=== PATIENT | male | born 1995 | race Caucasian/White ===

== ENCOUNTER 2022-09-01 12:54 | Emergency (ER) | payer MEDICAID, OTHER, SELFPAY ==
--- NOTE | 2022-09-01 13:02 | ED_ITS ---
HPI - Extremity Problem General Chief complaint: Wound/Laceration <MICK Crawford - Last Filed: 09/01/22 13:05> Stated complaint: L finger laceration <MICK Crawford - Last Filed: 09/01/22 13:05> Time Seen by Provider: 09/01/22 14:41 <MICK Crawford - Last Filed: 09/01/22 13:05> Source: patient and print operator <Anneliese Hodgson NP - Last Filed: 09/01/22 16:53> Mode of arrival: ambulatory <Anneliese Hodgson NP - Last Filed: 09/01/22 16:53> Limitations: language barrier <Anneliese Hodgson NP - Last Filed: 09/01/22 16:53> History of Present Illness HPI Narrative: 26 yo male right hand dominant here with lac to left index finger from a knife. Tetanus unknown. No weakness, numbness, tingling of the extremity. <RIANA Coello Last Filed: 09/01/22 16:53> Related Data Allergies/Adverse reactions: Allergies Allergy/AdvReac Type Severity Reaction Status Date / Time No Known Allergies Allergy Verified 09/01/22 13:03 <MICK Crawford - Last Filed: 09/01/22 13:05> Review of Systems Review of Systems: Yes all other systems are reviewed and are negative <Anneliese Hodgson NP - Last Filed: 09/01/22 16:53> Constitutional: Constitutional: Reports no additional constitutional complaints, Denies body ache(s), Denies chills, Denies fever(s), Denies headache(s) and Denies weakness <Anneliese Hodgson NP - Last Filed: 09/01/22 16:53> Eyes: Eyes: Reports no additional eye complaints and Denies change in vision <Anneliese Hodgson NP - Last Filed: 09/01/22 16:53> ENT: Reports system reviewed and no additional complaints, except as documented, Denies dizziness, Denies headache(s), Denies nasal congestion, Denies nasal discharge and Denies neck pain <Anneliese Hodgson NP - Last Filed: 09/01/22 16:53> Cardiovascular: Cardiovascular: Reports no additional cardiovascular complaints, Denies chest pain, Denies leg edema and Denies dyspnea <Anneliese Hodgson NP - Last Filed: 09/01/22 16:53> Respiratory: Respiratory: Reports no additional respiratory complaints, Denies cough and Denies dyspnea <Anneliese Hodgson NP - Last Filed: 09/01/22 16:53> Gastrointestinal: Gastrointestinal: Reports no additional gastrointestinal complaints, Denies abdominal pain, Denies diarrhea, Denies nausea and Denies vomiting <Anneliese Hodgson NP - Last Filed: 09/01/22 16:53> Genitourinary: Genitourinary: Denies urinary incontinence <Anneliese Hodgson NP - Last Filed: 09/01/22 16:53> Musculoskeletal: Musculoskeletal: Reports no additional musculoskeletal complaints, Denies back pain, Denies arthralgias, Denies joint swelling, Denies neck pain, Denies numbness and Denies tingling <Anneliese Hodgson NP - Last Filed: 09/01/22 16:53> Integumentary/Breasts: Skin/Breast: Reports system reviewed and no additional complaints, except as docu, Denies rash and Reports wounds <Anneliese Hodgson NP - Last Filed: 09/01/22 16:53> Neurologic: Reports system reviewed and no additional complaints, except as documented, Denies Abnormal speech present, Denies dizziness, Denies headache(s), Denies numbness, Denies tingling and Denies weakness <Anneliese Hodgson NP - Last Filed: 09/01/22 16:53> [facility] Past Medical History Attestation statement: The following information was validated with the patient. <Anneliese Hodgson NP - Last Filed: 09/01/22 16:53> Source: old records reviewed and nursing notes reviewed <Anneliese Hodgson NP - Last Filed: 09/01/22 16:53> Social History Social History: Social History Advance Directives: No Advance Directives Information Provided: Yes <MICK Crawford - Last Filed: 09/01/22 13:05> Physical Exam Vital Signs: Vital Signs: Last Vital Signs Temp 97.8 F 09/01/22 16:37 Pulse 60 09/01/22 16:37 Resp 16 09/01/22 16:37 BP 121/78 09/01/22 16:37 Pulse Ox 98 09/01/22 16:37 O2 Del Method 09/01/22 16:37 BMI result Body Mass Index 28.3 <MICK Crawford - Last Filed: 09/01/22 13:05> Vital Signs: Last Vital Signs Temp 97.8 F 09/01/22 16:37 Pulse 60 09/01/22 16:37 Resp 16 09/01/22 16:37 BP 121/78 09/01/22 16:37 Pulse Ox 98 09/01/22 16:37 O2 Del Method 09/01/22 16:37 BMI result Body Mass Index 28.3 <Anneliese Hodgson NP - Last Filed: 09/01/22 16:53> Const: General: cooperative, healthy appearing, comfortable and no acute distress <Anneliese Hodgson NP - Last Filed: 09/01/22 16:53> Orientation/consciousness: patient oriented x3 <Anneliese Hodgson NP - Last Filed: 09/01/22 16:53> Limitations: no limitations <Anneliese Hodgson NP - Last Filed: 09/01/22 16:53> HEENT: Head: Yes normal to inspection <Anneliese Hodgson NP - Last Filed: 09/01/22 16:53> Ears: hearing grossly normal bilaterally <Anneliese Hodgson NP - Last Filed: 09/01/22 16:53> General nose exam: Normal external nose present <Anneliese Hodgson NP - Last Filed: 09/01/22 16:53> Face and sinus: Yes normal facial exam <Anneliese Hodgson NP - Last Filed: 09/01/22 16:53> Mouth: Normal oral and palatal mucosa present <Anneliese Hodgson NP - Last Filed: 09/01/22 16:53> Throat: Yes posterior oropharynx normal <Anneliese Hodgson [employer]ERCIAL LINES ASSISTANT - Last Filed: 09/01/22 16:53> Eyes: General: appearance normal, both eyes and all related structures <Anneliese Hodgson COMMERCIAL LINES ASSISTANT - Last Filed: 09/01/22 16:53> Pupils: Equal, round and reactive pupils present <Anneliese Hodgson COMMERCIAL LINES ASSISTANT - Last Filed: 09/01/22 16:53> Neck: Neck: Yes normal visual inspection <Anneliese Hodgson COMMERCIAL LINES ASSISTANT - Last Filed: 09/01/22 16:53> Chest: Chest palpation & inspection: normal inspection of the chest <Anneliese Hodgson COMMERCIAL LINES ASSISTANT - Last Filed: 09/01/22 16:53> Resp: Effort & Inspection: normal respiratory effort <Anneliese Hodgson COMMERCIAL LINES ASSISTANT - Last Filed: 09/01/22 16:53> Auscultation: clear to auscultation bilaterally <Anneliese Hodgson COMMERCIAL LINES ASSISTANT - Last Filed: 09/01/22 16:53> Cardio: Rate: regular rate <Anneliese Hodgson COMMERCIAL LINES ASSISTANT - Last Filed: 09/01/22 16:53> Rhythm: regular rhythm <Anneliese Hodgson COMMERCIAL LINES ASSISTANT - Last Filed: 09/01/22 16:53> Peripheral pulses: Peripheral pulses 2+ throughout <Anneliese Hodgson COMMERCIAL LINES ASSISTANT - Last Filed: 09/01/22 16:53> GI: Inspection: Yes normal to inspection <Anneliese Hodgson COMMERCIAL LINES ASSISTANT - Last Filed: 09/01/22 16:53> Palpation (GI): Soft to palpation and nontender <Anneliese Hodgson COMMERCIAL LINES ASSISTANT - Last Filed: 09/01/22 16:53> Auscultation: normal bowel sounds <Anneliese Hodgson COMMERCIAL LINES ASSISTANT - Last Filed: 09/01/22 16:53> Back/Spine/Pelvis: Thoracic/Lumbar Spine: thoracic and lumbar spine normal to inspection <Anneliese Hodgson COMMERCIAL LINES ASSISTANT - Last Filed: 09/01/22 16:53> Skin: General skin exam: no rashes or lesions noted <Anneliese Hodgson COMMERCIAL LINES ASSISTANT - Last Filed: 09/01/22 16:53> Neuro: General: patient oriented x3, no focal motor deficits and normal sensation to monofilament <Anneliese Hodgson NP - Last Filed: 09/01/22 16:53> Cranial nerves: Yes Equal, round and reactive pupils present <Anneliese chase NP - Last Filed: 09/01/22 16:53> Cognition (Neuro): normal cognition <Anneliese Hodgson NP - Last Filed: 09/01/22 16:53> Speech: No Abnormal speech present <Anneliese Hodgson COMMERCIAL LINES ASSISTANT - Last Filed: 09/01/22 16:53> Gait exam (Neuro): Normal gait present <Anneliese Hodgson NP - Last Filed: 09/01/22 16:53> Motor exam (neuro): 5/5 motor strength present throughout <Anneliese Hodgson NP - Last Filed: 09/01/22 16:53> Extrem: Other: Over the left index finger on the dorsal aspect of the PIP there is 2cm laceration. FROM of the digit with no difficulty. Normal distal sensation <Anneliese Hodgson NP - Last Filed: 09/01/22 16:53> General: Yes normal to inspection <Anneliese Hodgson NP - Last Filed: 09/01/22 16:53> Course Course Course Narrative: This is an RME: Additional HPI, ROS, PE not included below will be deferred to primary provider. 26 year old male presents w/ lac to L. second digit , patient tells me he caught himself accidentally with a knife just prior to arrival. Not up-to-date on tetanus shot. Physical examination with a 2 cm linear laceration to the dorsal aspect of 2nd digit. 2+ radial pulses equal bilateral. Normal capillary refill. Laceration will require repair. Will order Boostrix from triage. <MICK Crawford - Last Filed: 09/01/22 13:05> Reevaluation(s) Reevaluation #1: Patient seen in conjunction with MICK Hansen who performed wound repair <Anneliese Hodgson NP - Last Filed: 09/01/22 16:53> Medications Administered Discontinued Medications Generic Name Dose Route Start Last Admin Trade Name Freq PRN Reason Stop Dose Admin Diphtheria/Tetanus/Acell Pertussis 0.5 ml 09/01/22 13:03 09/01/22 14:43 Diphth,Pertus(Acell),Tet Adult 0.5 Ml Syringe IM 09/01/22 13:04 0.5 ml .ONCE ONE Administration Lidocaine HCl 2 ml 09/01/22 15:36 09/01/22 15:41 Lidocaine Hcl 1 % Mpf 2 Ml Vial INFILTRATI 09/01/22 15:37 2 ml ONCE ONE Administration Lidocaine HCl 2 ml 09/01/22 15:36 09/01/22 15:41 Lidocaine Hcl 1 % Mpf 2 Ml Vial INFILTRATI 09/01/22 15:37 2 ml ONCE ONE Administration <MICK Crawford - Last Filed: 09/01/22 13:05> Medications Administered Discontinued Medications Generic Name Dose Route Start Last Admin Trade Name Freq PRN Reason Stop Dose Admin Diphtheria/Tetanus/Acell Pertussis 0.5 ml 09/01/22 13:03 09/01/22 14:43 Diphth,Pertus(Acell),Tet Adult 0.5 Ml Syringe IM 09/01/22 13:04 0.5 ml .ONCE ONE Administration Lidocaine HCl 2 ml 09/01/22 15:36 09/01/22 15:41 Lidocaine Hcl 1 % Mpf 2 Ml Vial INFILTRATI 09/01/22 15:37 2 ml ONCE ONE Administration Lidocaine HCl 2 ml 09/01/22 15:36 09/01/22 15:41 Lidocaine Hcl 1 % Mpf 2 Ml Vial INFILTRATI 09/01/22 15:37 2 ml ONCE ONE Administration <Anneliese Hodgson NP - Last Filed: 09/01/22 16:53> Medical Decision Making Medical Decision Making MDM Narrative: 26 yo male right hand dominant here with laceration to left index finger. Tetanus unknown See procedure note <Anneliese Hodgson NP - Last Filed: 09/01/22 16:53> Differential Diagnosis Differential Diagnoses: The differential diagnosis associated with the presentation includes <Anneliese Hodgson NP - Last Filed: 09/01/22 16:53> laceration <Anneliese Hodgson NP - Last Filed: 09/01/22 16:53> Procedures Laceration Laceration 1: Site: hand (index finger) <Anneliese Hodgson NP - Last Filed: 09/01/22 16:53> Side (If applicable): left <Anneliese Hodgson NP - Last Filed: 09/01/22 16:53> Size (cm): 2 <Anneliese Hodgson NP - Last Filed: 09/01/22 16:53> Description: linear <Anneliese Hodgson NP - Last Filed: 09/01/22 16:53> Depth: simple, single layer <Anneliese Hodgson NP - Last Filed: 09/01/22 16:53> Pre-repair: wound explored <Anneliese Hodgson NP - Last Filed: 09/01/22 16:53> Skin layer closed with: vicryl <Anneliese Hodgson NP - Last Filed: 09/01/22 16:53> Size (cm): 5-0 <Anneliese Hodgson NP - Last Filed: 09/01/22 16:53> Number of sutures: 6 <Anneliese Hodgson NP - Last Filed: 09/01/22 16:53> Technique: simple, interrupted <Anneliese Hodgson NP - Last Filed: 09/01/22 16:53> Nerve Block Nerve Block 1: Local Anesthetic: lidocaine 1% <Anneliese Hodgson NP - Last Filed: 09/01/22 16:53> Amount of anesthesia used (mL): 3 <Anneliese Hodgson NP - Last Filed: 09/01/22 16:53> Side: left <Anneliese Hodgson NP - Last Filed: 09/01/22 16:53> Nerve Blocks: digital <Anneliese Hodgson NP - Last Filed: 09/01/22 16:53> Procedure Successful: Yes <Anneliese Hodgson NP - Last Filed: 09/01/22 16:53> Patient Tolerated Procedure: well <Anneliese Hodgson NP - Last Filed: 09/01/22 16:53> Complications: none <Anneliese Hodgson NP - Last Filed: 09/01/22 16:53> Discharge Plan Discharge Clinical Impression: Laceration <MICK Crawford - Last Filed: 09/01/22 13:05> Patient Disposition: Home, Self-Care <MICK Crawford - Last Filed: 09/01/22 13:05> Instructions: Finger Laceration (ED) <MICK Crawford - Last Filed: 09/01/22 13:05> Additional Instructions: Se sutura en 7-10 d?as. [place] motrin/tylenol para el dolor seg?n sea necesario <MICK Crawford - Last Filed: 09/01/22 13:05> Referrals: Physician,None [Primary Care Provider] - 1 week <MICK Crawford - Last Filed: 09/01/22 13:05> Interventions: ED Discharge Assessment Last Done: 09/01/22 16:52 <MICK Crawford - Last Filed: 09/01/22 13:05>
[2022-09-01 13:04] VITALS: BP 128/65; PULSE 71; RESP 18; TEMP 36.1; O2SAT 97; BMI 28.3
[2022-09-01] MEDS: Diphth,Pertus(ACell),Tet Adult 0.5 ML SYRINGE IM (14:43)
--- NOTE | 2022-09-01 14:49 | PC.NURSE ---
pt tetanus updated, left index finger soaking in 1/2 iodine 1/2 NS, bleeding controlled, open area located at second knuckle
[2022-09-01] MEDS: Lidocaine HCl 1 % MPF 2 ML VIAL INFILTRATI ×2 (15:41)
[2022-09-01 16:37] VITALS: BP 121/78; PULSE 60; RESP 16; TEMP 36.6; O2SAT 98
== END 2022-09-01 16:52 | disposition home or self-care (01) ==
PROVIDERS: Emergency Provider Emergency Medicine
DX: S61.211A Laceration without foreign body of left index finger without damage to nail, initial encounter (principal); W26.0XXA Contact with knife, initial encounter; Y93.9 Activity, unspecified; Y92.9 Unspecified place or not applicable; Z23 Encounter for immunization
CPT/HCPCS: 12001; 90471; 90715; 99283; 99284